=== PATIENT | female | born 1975 | race Caucasian/White ===

== ENCOUNTER → 2017-05-24 | Outpatient (CLI) | payer OTHER | LOC: FIMAGING 10:28 | PROVIDERS: ATTEND Physician Assistant | DX: K76.0 Fatty (change of) liver, not elsewhere classified (principal); K76.89 Other specified diseases of liver ==

== ENCOUNTER 2018-01-03 | Day surgery (SDC) | payer OTHER | END 2018-01-03 14:15 | disposition home or self-care (01) | PROC: 0DB98ZX Excision of Duodenum, Via Natural or Artificial Opening Endoscopic, Diagnostic (ICD-10-PCS; principal; 2018-01-03) | PROC: 0DB68ZX Excision of Stomach, Via Natural or Artificial Opening Endoscopic, Diagnostic (ICD-10-PCS; principal; 2018-01-03) | DX: K29.50 Unspecified chronic gastritis without bleeding (principal); K31.89 Other diseases of stomach and duodenum ==

== ENCOUNTER 2018-01-12 08:05 | Observation (INO) | payer OTHER ==
[2018-01-12] MEDS ORDERED: ceFAZolin 2 GM/DEXTROSE 100 ML IV ONE (08:11)
[2018-01-12] MEDS ORDERED: LR 1,000 ML IV ONE (08:22)
[2018-01-12] MEDS ORDERED: THROMBIN (BOVINE) 20,000 UNIT SPRAY TP ONE (10:16)
[2018-01-12] MEDS ORDERED: BUPIVACAINE 0.25% 30 ML SDV ONE (10:16)
[2018-01-12] MEDS ORDERED: BACITRACIN ZINC 14.2 GM OINTTUBE TP ONE (10:17)
[2018-01-12] MEDS ORDERED: GENTAMICIN SULFATE 80 MG/2 ML VIAL ONE (10:18)
[2018-01-12] MEDS ORDERED: BACITRACIN 50,000 UNITS/10 ML SYR IRR ONE (10:18)
[2018-01-12] MEDS ORDERED: ceFAZolin 1 GM/5 ML SYR ONE (10:18)
--- NOTE | 2018-01-12 10:31 | PDANEPAE ---
ANE Past Medical History - Cardiovascular History Hx Hypertension: No Hx Arrhythmias: No Hx Chest Pain: No Hx Coronary Artery / Peripheral Vascular Disease: No Hx CHF / Valvular Disease: No Hx Palpitations: No Cardiovascular History Comment: cp several yrs ago 2002, workup at that was negative per pt no issues since then - Pulmonary History Hx COPD: No Hx Asthma/Reactive Airway Disease: Yes Hx Recent Upper Respiratory Infection: No Hx Oxygen in Use at Home: No Hx Sleep Apnea: No Sleep Apnea Screening Result - Last Documented: Negative Pulmonary History Comment: allergy induced asthma,uses inhaler albuterol. Pt states she 'sometimes forgets to breath when awake' and will end up gasping. States "has never passed out but it happens all the time" - Neurologic History Hx Cerebrovascular Accident: No Hx Seizures: No Hx Dementia: No - Endocrine History Hx Diabetes: No - Renal History Hx Renal Disorders: No - Liver History Hx Hepatic Disorders: No - Neurological & Psychiatric Hx Hx Neurological and Psychiatric Disorders: Yes Neurological / Psychiatric History Comment: depression R/T new diagnosis - Cancer History Hx Cancer: Yes Cancer History Comment: erpr positive. ductal carcinoma of breast - Congenital Disorder History Hx Congenital Disorders: No - GI History Hx Gastrointestinal Disorders: Yes Gastrointestinal History Comment: reflux, ciliac disease. vomiting - Other Health History Other Health History: psoriasis forehead, scalp, behind ears, and under breasts - Chronic Pain History Chronic Pain: Yes (headaches) - Surgical History Prior Surgeries: endoscopy x2, last 01/03/18 for gastritis ANE Review of Systems Review of Systems: - Exercise capacity METS (RN): 4 METS ANE Patient History - Allergies Allergies/Adverse Reactions: gluten Allergy (Verified 01/10/18 11:47) pt has celiac disease metronidazole Allergy (Verified 01/09/18 08:47) "Head to toe rash" Poultry [chicken] Allergy (Verified 01/10/18 11:47) rash, difficulty breathing vancomycin Allergy (Verified 01/09/18 08:47) "[place] like burning from inside out" - Home Medications Home Medications: Acetaminophen/ASA/Caffeine [Excedrin Tablet (*)] 2 each PO DAILY PRN 01/09/18 [ Last Taken 01/06/18] Albuterol [Proventil Inhaler HFA (*)] 1 - 2 puffs IH Q4H PRN 01/09/18 [Last Taken 3 Months Ago ~10/12/17] Clindamycin Cream 1 joann TP WE 01/09/18 [Last Taken 2 Weeks Ago ~12/29/17] valACYclovir 01/10/18 [Last Taken 07/06/17] - NPO status NPO Since - Liquids (Date): 01/11/18 NPO Since - Liquids (Time): 22:00 NPO Since - Solids (Date): 01/11/18 NPO Since - Solids (Time): 22:00 - Smoking Hx Smoking Status: Former smoker - Family Anes Hx Family Hx Anesthesia Complications: grandmother did not ever wake up from anesthesia ANE Labs/Vital Signs - Vital Signs Blood Pressure: 110/86 Heart Rate: 75 Respiratory Rate: 16 O2 Sat (%): 96 Height: 152.4 cm Weight: 108.409 kg ANE Physical Exam - Airway Mallampati Score: Class 1 - ASA Status ASA Status: II ANE Anesthesia Plan Anesthesia Plan: GA w LMA
[2018-01-12] MEDS ORDERED: fentaNYL 100 MCG/2 ML INJ ONE ×3 (10:36→12:44)
[2018-01-12] MEDS ORDERED: MIDAZOLAM 2 MG/2 ML VIAL ONE (10:36)
[2018-01-12] MEDS ORDERED: PROPOFOL 200 MG/20 ML VIAL ONE (10:37)
--- NOTE | 2018-01-12 10:37 | PDHPUP ---
History & Physical Update H&P update statement: This history and physical update is based on an assessment of the patient which was completed after admission or registration (within 24 hours), but prior to the surgery/procedure. H&P update: H&P reviewed & patient examined, no change in patient's condition since H&P completed
[2018-01-12] MEDS ORDERED: ONDANSETRON 4 MG/2 ML VIAL ONE (10:38)
[2018-01-12] MEDS ORDERED: LIDOCAINE 2% JELLY 5 ML TUBE ONE (10:38)
[2018-01-12] MEDS ORDERED: METOCLOPRAMIDE 10 MG/2 ML VIAL ONE (10:38)
[2018-01-12] MEDS ORDERED: ceFAZolin 1 GM VIAL ONE (11:45)
--- NOTE | 2018-01-12 11:45 | POSTOPPROG ---
Post Op Note Date of Operation: 01/12/18 Surgeon: Luna Rodriguez Internetworking Technician: gloria Anesthesiologist: matthias Anesthesia: GET(General Endotracheal) Pre-op Diagnosis: L invasive ductal ca Post-op Diagnosis: same Indication: 42yo F with L invasive ductal ca Procedure: L mastectomy with L SLN bx Findings: L SLN neg Inf/Abcess present in the surg proc area at time of surgery?: No Specimen(s): L breast L SLN
[2018-01-12] MEDS ORDERED: ONDANSETRON 4 MG/2 ML VIAL IVP PRN (11:47)
[2018-01-12] MEDS ORDERED: oxyCODONE IR 5 MG TAB PO PRN (11:47)
[2018-01-12] MEDS ORDERED: HYDROmorphONE/DILAUDID 1 MG/ML INJ IVP PRN ×2 (11:47→12:45)
[2018-01-12] MEDS ORDERED: ONDANSETRON DISINTEGRATING 4 MG TAB PO PRN (11:47)
[2018-01-12] MEDS ORDERED: diphenhydrAMINE 25 MG CAP PO PRN (11:47)
[2018-01-12] MEDS ORDERED: ACETAMINOPHEN/ASA/CAFFEINE 1 EACH TAB PO PRN (11:49)
[2018-01-12] MEDS ORDERED: ALBUTEROL 60 PUFFS/8 GM MDI IH PRN (11:49)
--- NOTE | 2018-01-12 12:11 | GOP ---
DATE OF OPERATION: 01/12/2018 SURGEON: Luna Rodriguez MD KIESELGUHR REGENERATOR OPERATOR: Haylee Perez PA-C. ANESTHESIA: Amilcar Sullivan/general. PREOPERATIVE DIAGNOSIS: Left upper outer breast cancer. POSTOPERATIVE DIAGNOSIS: Left upper outer breast cancer. PROCEDURE PERFORMED: Left unilateral mastectomy and left sentinel lymph node. FINDINGS: The breast weighed 1414 g. The sentinel lymph node was negative ESTIMATED BLOOD LOSS: 25 cc. INDICATIONS: The patient is a 42-year-old woman, who was recently diagnosed with breast cancer. She desired unilateral mastectomy with tissue guest service team leader. DESCRIPTION OF PROCEDURE: Patient was brought into the operating room, placed supine on the table. General anesthesia was administered. Her bilateral chest was prepped and draped in the usual sterile fashion. I made an ellipse around her nipple-areolar complex, which had been premarked by Dr. Thorne. I made superior and inferior skin flaps, continued to the clavicle, sternum, inframammary fold, and midaxillary line. I removed the breast from the chest wall including the pectoralis fascia was marked short superior, long lateral. I used the gamma probe to identify the sentinel node. It measured 2600 ex vivo. The background was less than 100. Hemostasis was achieved. Dr. Thorne could then complete his portion of the case. /[id number]/MODL MTDD
[2018-01-12] MEDS: fentaNYL 100 MCG/2 ML INJ IVP PRN ×3 (12:42→13:06)
[2018-01-12] MEDS ORDERED: KETOROLAC 30 MG/1 ML SDV ONE (12:44)
[2018-01-12] MEDS ORDERED: DEXAMETHASONE 4 MG/ML VIAL IVP PRN (12:45)
[2018-01-12] MEDS ORDERED: ACETAMINOPHEN 500 MG TAB PO PRN (12:45)
[2018-01-12] MEDS ORDERED: PROMETHAZINE HCL 25 MG/ML INJ IVP PRN (12:45)
[2018-01-12] MEDS ORDERED: NALOXONE HCL 0.4 MG/ML INJ IVP PRN (12:45)
[2018-01-12] MEDS ORDERED: LR 500 ML IV PRN (12:45)
[2018-01-12] MEDS ORDERED: DIAZEPAM 5 MG/ML 1 ML SYR IVP PRN (12:45)
[2018-01-12] MEDS ORDERED: KETOROLAC 30 MG/1 ML SDV IVP ONE (12:46)
--- NOTE | 2018-01-12 12:47 | POSTANESTH ---
Post Anesthetic Evaluation Cardiovascular Status: Normal, Stable Respiratory Status: Normal, Stable Level of Consciousness/Mental Status: Can Participate in Eval Pain Control: Adequate, Prn Tx Ordered Nausea/Vomiting Control: Adequate, Prn Tx Ordered Complications Possibly Related to Anesthesia: None Noted
--- NOTE | 2018-01-12 13:02 | GOP ---
DATE OF OPERATION: 01/12/2018 SURGEON: Chante Thorne Jr., MD ASSISTANT FOOD SERVICE MANAGER: Angelo Don, by surgeon request (skilled surgical assist was necessary du e to the technical complexity of the case and desire to minimize patient anesthesia time). ANESTHESIA: General inhalational anesthetic. ANESTHESIOLOGIST: Dr. Amilcar Sullivan. PREOPERATIVE DIAGNOSIS: Left breast cancer. POSTOPERATIVE DIAGNOSIS: Left breast cancer. PROCEDURE PERFORMED: Immediate left breast reconstruction utilizing tissue senior product manager and human dermal allograft. FINDINGS: ESTIMATED BLOOD LOSS: During reconstruction was 25 cc. INDICATIONS: The patient is a delightful young woman referred by Dr. Lauren Rodriguez for breast reconstr uction following a planned left mastectomy. She elected to undergo initial placement of a tissue exp aakash with thoughts of eventually having a free flap transfer to the area. She was taken to the oper ating room for that purpose. DESCRIPTION OF PROCEDURE: After risks and benefits of the procedure were explained to the patient, f ormal operative consent was obtained. She was taken to the operating room. After adequate inhalatio nal general anesthesia was provided by Dr. Amilcar Sullivan, a left-sided mastectomy with sentinel lymph node mapping was performed by Dr. Rodriguez. This was uncomplicated. [place] lymph node was negative. Reconstruction proceeded by placing fresh sterile towels around the operative field, changing instr umentation, electrocautery and suction. Procedure began by irrigating the pocket. Meticulous hemost asis was assured during the mastectomy. The tissue senior product manager had been previously prepared by deflatin g completely, reinflating with air, and wrapping in complete wrap of AlloDerm acellular dermis graft. The graft had been previously triple rinsed in normal saline and soaked in triple antibiotic saline . The AlloDerm enclosed tissue senior product manager were then sutured down to the chest wall in the correct shaheen omic position using 2-0 PDS suture. The skin was then redraped. Significant lateral dog-ear was exc ised. Skin redundancy was sharply excised. Hemostasis again assured. The pocket was rinsed with tr iple antibiotic saline. A 15 round drain was placed. The incision was then closed in 3 layers using 3-0 Vicryl suture, 3-0 Monocryl suture, and further everted using surgical alberto. 30 cc of 0.25% plain Marcaine was instilled into the drain. Bacitracin, Xeroform, and 4 x 4's were applied with a c ompressive bra. She was extubated in the OR, taken to the recovery room, awake, in a stable conditio n. TISSUE PRODUCE TEAM LEAD: Allergan style [id number], 550 cc tissue senior product manager filled to 400 cc with air. DRAIN: One PAUL drain was placed. COMPLICATIONS: None. /[id number]/MODL
[2018-01-12] MEDS ORDERED: oxyCODONE IR 5 MG TAB ONE (13:19)
[2018-01-12] MEDS ORDERED: valACYclovir 500 MG TAB PO PRN (15:21)
[2018-01-12] MEDS: oxyCODONE IR 5 MG TAB PO PRN ×3 (15:28→23:45)
[2018-01-12] MEDS: ACETAMINOPHEN 325 MG TAB PO PRN ×2 (18:17→23:45)
[2018-01-12] MEDS: CYCLOBENZAPRINE 10 MG TAB PO PRN ×2 (18:17→21:38)
[2018-01-12] MEDS: ceFAZolin 0.5 GM in NS 50 ML IV SCH (21:38)
[2018-01-13] MEDS: oxyCODONE IR 5 MG TAB PO PRN ×6 (04:55→20:22)
[2018-01-13] MEDS: ceFAZolin 0.5 GM in NS 50 ML IV SCH (04:57)
[2018-01-13 05:00] LABS: PLATELET COUNT 203 10^3/uL (150-400)
[2018-01-13] MEDS: ACETAMINOPHEN 325 MG TAB PO PRN ×3 (09:11→21:14)
--- NOTE | 2018-01-13 11:03 | SOAPPROG ---
SOAP Progress Note Assessment/Plan: Assessment: POD # 1 s/p L mastectomy L SLN and reconstruction Bradycardia - sinus wil on EKG Still in pain Still requiring Oxygenation - has history of obstructive sleep apnea and apneic events in the daytime Will monitor O2 sat BP stable HR up S: In pain, walked twice yesterday O: Lying in bed at bedside Incision cdi Plan: 01/13/18 11:03 01/13/18 11:04 Objective: Vital Signs Temp Pulse Resp BP Pulse Ox 36.1 C 54 L 18 120/67 97 01/13/18 09:05 01/13/18 09:05 01/13/18 09:05 01/13/18 09:05 01/13/18 09:05 Laboratory Results 01/13/18 04:50 01/12/18 01/13/18 01/14/18 05:59 05:59 05:59 Intake Total 2460 100 Output Total 365 Balance 2095 100 ICD10 Worksheet Patient Problems: Problems Problem Status Onset Breast cancer Acute - ICD10 Problem Qualifiers (1) Breast cancer Qualifiers: Patient sex: female Laterality: left
[2018-01-13] MEDS ORDERED: CEPHALEXIN 500 MG CAP PO SCH (12:00)
[2018-01-13] MEDS: CEPHALEXIN 500 MG CAP PO SCH ×3 (12:43→23:33)
[2018-01-13] MEDS ORDERED: NS 1,000 ML IV ONE (15:30)
--- NOTE | 2018-01-13 16:05 | CPEKG ---
Test Reason : OPEN Blood Pressure : / mmHG Vent. Rate : 045 BPM Atrial Rate : 046 BPM P-R Int : 162 ms QRS Dur : 099 ms QT Int : 455 ms P-R-T Axes : 022 028 022 degrees QTc Int : 394 ms Sinus bradycardia Low voltage, precordial leads Confirmed by Jan Fabian ([id number]) on 01/13/2018 4:05:32 PM Referred By: Confirmed By:Jan Fabian
--- NOTE | 2018-01-13 17:49 | ASMTCMCOM ---
CM Note CM Note Notes: Pt admitted to hospital for a scheduled L breast mastectomy. She lives with her and is otherwise independent. Anticipate she will go home with no needs. CM available for any changes. DC Plan: Independent Date Signed: 01/13/2018 05:48 PM Electronically Signed By:Jennifer Walton RN
[2018-01-14] MEDS: oxyCODONE IR 5 MG TAB PO PRN ×6 (00:50→16:56)
[2018-01-14] MEDS: CEPHALEXIN 500 MG CAP PO SCH ×3 (05:16→17:06)
[2018-01-14] MEDS: ACETAMINOPHEN 325 MG TAB PO PRN ×2 (05:19→16:01)
[2018-01-14] MEDS ORDERED: MAGNESIUM HYDROXIDE 30 ML UDCUP PO PRN (09:48)
[2018-01-14] MEDS ORDERED: LACTULOSE 20 GM/30 ML UDCUP PO PRN (09:48)
[2018-01-14] MEDS ORDERED: POLYETHYLENE GLYCOL 3350 17 GM PKT PO PRN (09:48)
[2018-01-14] MEDS ORDERED: BISACODYL 10 MG SUPP PR PRN (09:48)
--- NOTE | 2018-01-14 10:33 | SOAPPROG ---
SOAP Progress Note Assessment/Plan: Assessment: POD # 2 s/p L mastectomy L SLN and reconstruction Bradycardia - sinus wil on EKG - improved overnight Hypotension resolved with bolus Choked on food this am but recovered Oxygenation improved Likely dc later this afternoon S: Still some chest discomfort. O: Sitting up in bed Incision cdi no evidence of flap necrosis PAUL with serosanguinous fluid Plan: 01/13/18 11:03 01/13/18 11:04 01/14/18 10:31 Objective: Vital Signs Temp Pulse Resp BP Pulse Ox 37.1 C 66 16 97/66 L 90 L 01/14/18 07:55 01/14/18 07:55 01/14/18 07:55 01/14/18 07:55 01/14/18 07:58 Laboratory Results 01/13/18 04:50 01/13/18 01/14/18 01/15/18 05:59 05:59 05:59 Intake Total 2460 1950 Output Total 365 550 Balance 209 1400 ICD10 Worksheet Patient Problems: Problems Problem Status Onset Breast cancer Acute - ICD10 Problem Qualifiers (1) Breast cancer Qualifiers: Patient sex: female Laterality: left
--- NOTE | 2018-01-14 13:15 | PDHOMEO2F ---
Home Oxygen Face to Face Home Orders: I certify that a physician or a nurse practitioner or physician's graduate research assistant has had a [id number] encounter with this patient on the date of this order due to the diagnosis listed, which relates to the primary reason the patient requires home oxygen. Alternative treatments have been tried, or considered, and deemed ineffective. It is anticipated that supplemental oxygen will result in improvement with treatment. Home oxygen qualifying diagnosis: restrictive lung disease SpO2 on room air (%): 86 Frequency of home oxygen needed: during sleep Home oxygen liters per minute: 2L Home oxygen delivery device: nasal cannula Concentrator: Yes E-tanks for mobility and back up: Yes If ordering portable O2, is the patient mobile in the home?: Yes I certify that, based on these findings, the home oxygen is medically necessary for this patient for the following length of time. Length of time home oxygen needed: 1 month (O2 sat 86% when sleeping)
[2018-01-14] MEDS ORDERED: SENNOSIDES/DOCUSATE SODIUM TAB PO SCH (14:15)
--- NOTE | 2018-01-14 14:37 | ASMTLACE ---
DEVONE Length of stay for Answers: 2 days current admission Comorbidities - select Answers: Any tumor (including all that apply lymphoma or leukemia) Opioid dependence / Chronic pain # of Emergency department Answers: 0 visits in the last 6 months Social determinants Answers: Mental health diagnosis (anxiety, depression, pers onality disorders, etc.) Score: 11 Date Signed: 01/14/2018 02:37 PM Electronically Signed By:Elizabeth Villar RN
--- NOTE | 2018-01-14 14:41 | ASMTCMCOM ---
CM Note CM Note Notes: Met with patient and her to review dc plan of care. Patient requiring oxygen. Pain is issue today. They are clear regarding follow up appointments and deny other needs at this time. CM available should other needs arise. Plan: Home with oxygen and family support. Date Signed: 01/14/2018 02:41 PM Electronically Signed By:Elizabeth Villar RN
[2018-01-14 17:09] VITALS: BP 115/75
[2018-01-17] MEDS ORDERED: CLINDAMYCIN TP SCH (11:49)
--- NOTE | 2018-01-23 18:19 | GDS ---
ADMITTING DIAGNOSIS: Left breast cancer. SECONDARY DIAGNOSES: 1. Asthma. 2. Celiac disease. 3. Psoriasis. REASON FOR ADMISSION: A 42-year-old woman diagnosed with a left breast cancer. She presents at this time for surgical intervention. HOSPITAL COURSE: She was taken to the operating room on 01/12/2018, by Dr. Luna Rodriguez for a left ma stectomy with left sentinel lymph node biopsy followed by plastic surgery reconstruction by Dr. Dada murray. She had PAUL drains placed at the time of surgery. At the time of dictation, her final pathology revealed multifocal invasive breast cancer with associated DCIS with areas of mucinous differentiatio n. Her sentinel lymph node biopsy was negative for metastatic disease. She developed bradycardia du ring her hospital stay, which improved overnight. She additionally had hypotension which resolved wi th a normal saline fluid bolus. She required supplemental oxygen through her hospital stay and this was not discontinued prior to discharge. By postoperative day #2 her pain was well controlled, camron ating regular diet, ambulating independently. CONDITION: She is being discharged home in stable condition. DISCHARGE MEDICATIONS: No new prescriptions sent home. Instructed to resume home medicines. Please see EMR for further detail. DISCHARGE INSTRUCTIONS AND FOLLOWUP: She will record and empty PAUL drain daily, showering and lifting per Dr. Thorne's preop instructions, appointment with Dr. Thorne on Monday, 01/17. Follow up w pablo Rodriguez in 2 weeks. She was sent home with supplemental oxygen. Call with worsening sym ptoms, questions or concerns. /[id number]/MODL
== END 2018-01-14 17:34 | disposition home or self-care (01) ==
LOC: F3N 08:05 → F1N 13:43
PROVIDERS: ADMIT Surgery; ATTEND Surgery
PROC: 07B60ZX Excision of Left Axillary Lymphatic, Open Approach, Diagnostic (ICD-10-PCS; 2018-01-12)
PROC: 0HTU0ZZ Resection of Left Breast, Open Approach (ICD-10-PCS; principal; 2018-01-12 10:00)
PROC: 0HHU0NZ Insertion of Tissue Expander into Left Breast, Open Approach (ICD-10-PCS; 2018-01-12 10:00)
DX: C50.412 Malignant neoplasm of upper-outer quadrant of left female breast (principal); J45.909 Unspecified asthma, uncomplicated; K90.0 Celiac disease; L40.9 Psoriasis, unspecified
CPT/HCPCS: 19303; 19357; 38525; 78195; 93005; A9520; G0378; J0690; J1170; J1580; J1885; J2250; J2270; J2405; J2704; J2765; J3010; Q4116

== ENCOUNTER 2018-01-23 21:22 | Observation (INO) | payer OTHER ==
[2018-01-23] MEDS ORDERED: ONDANSETRON 4 MG/2 ML VIAL IVP PRN (23:18)
[2018-01-23] MEDS ORDERED: ONDANSETRON DISINTEGRATING 4 MG TAB PO PRN (23:18)
[2018-01-23] MEDS ORDERED: ACETAMINOPHEN 325 MG TAB PO PRN (23:18)
[2018-01-23] MEDS: oxyCODONE IR 5 MG TAB PO PRN (23:44)
--- NOTE | 2018-01-24 00:13 | PDGENHP ---
History and Physical - Chief Complaint Pain - History of Present Illness 42 yo F w/ hx of asthma and breast CA presents from outpatient surgery center with uncontrolled pain. Patient underwent bilateral breast operations today. She tells me she had reconstruction on the L side and reduction on the R. The initial plan was for patient to be discharged home but she had uncontrolled pain despite treatment with oral medication. The only medication that worked was morphine so she is being admitted for pain control. She denies SOB at this time. Her VS are WNL on admission. Case discussed with Dr. Alexander, records reviewed in EMR. History Information - Allergies/Home Medication List Allergies/Adverse Reactions: gluten Allergy (Verified 01/10/18 11:47) pt has celiac disease metronidazole Allergy (Verified 01/09/18 08:47) "Head to toe rash" Poultry [chicken] Allergy (Verified 01/10/18 11:47) rash, difficulty breathing vancomycin Allergy (Verified 01/09/18 08:47) "[place] like burning from inside out" Home Medications: Acetaminophen/ASA/Caffeine [Excedrin Tablet (*)] 2 each PO DAILY PRN 01/09/18 [ Last Taken 01/06/18] Clindamycin 2% [Cleocin 2% Vaginal Cream (RX)] 0 gm VAG WE 01/09/18 [Last Taken 2 Weeks Ago ~12/29/17] valACYclovir [Valtrex (*)] 500 mg PO DAILY PRN 01/10/18 [Last Taken 07/06/17] Albuterol Hfa Anes Only [Proair Hfa Icu (*)] 2 puffs IH Q4-6PRN PRN 01/12/18 [ Last Taken Unknown] Hydrocodone/Acetaminophen [Hydrocodone-Acetamin 5-325 mg] 1 - 2 tab PO Q4-6PRN PRN 01/24/18 [Last Taken Unknown] I have personally reviewed and updated: family history, medical history - Past Medical History asthma, cancer - Surgical History Additional surgical history: L mastectomy by Dr. Rodriguez 01/12/18 - Family History Positive for: diabetes type II Additional family history: Multiple family members with primary pulmonary hypertension - Social History Smoking Status: Former smoker Review of Systems Review of Systems: ROS: 10pt was reviewed & negative except for what was stated in HPI & below Physical Exam Physical Exam: Temp Pulse Resp BP Pulse Ox 36.7 C 90 8 L 124/70 H 91 L 01/23/18 23:25 01/23/18 23:25 01/23/18 23:25 01/23/18 23:25 01/23/18 23:25 Constitutional: appears nourished, uncomfortable Eyes: PERRL, EOMI Ears, Nose, Mouth, Throat: moist mucous membranes, no oral mucosal ulcers Cardiovascular: regular rate and rhythym, no murmur, rub, or gallop Respiratory: no respiratory distress, clear to auscultation Gastrointestinal: normoactive bowel sounds, soft, non-tender abdomen Skin: warm, other (Surgical bandages in place) Musculoskeletal: full muscle strength, no joint effusions Neurologic: AAOx3, CN II-XII Intact Psychiatric: interacting appropriately, not anxious Assessment & Plan Assessment: 42 yo F w/ asthma and breast CA presents with uncontrolled pain after outpatient breast surgery. Plan: 1. Bilateral breast surgery - L reconstruction and R reduction preformed on 01/23 ; plan was for outpatient management but patient experienced uncontrolled pain. She is being admitted for pain control. - Oxycodone and morphine PRN - Continue Keflex for infectious prophylaxis 2. Breast CA - S/p L mastectomy and LN biopsy by Dr. Rodriguez on 01/12/18. 3. Asthma - Mild, intermittent; no signs of acute exacerbation. 4. Celiac disease - Reports well controlled Diet - Regular Code - Full Ppx - SCDs Dispo - Admit under observation status
[2018-01-24] MEDS: oxyCODONE IR 5 MG TAB PO PRN ×2 (03:29→10:14)
[2018-01-24 05:51] LABS: PLATELET COUNT 309 10^3/uL (150-400)
[2018-01-24 08:15] VITALS: BP 99/53
[2018-01-24] MEDS ORDERED: PNEUMOCOCCAL 0.5ML VACCINE VIAL IM ONE (08:30)
[2018-01-24] MEDS ORDERED: CEPHALEXIN 500 MG CAP PO SCH (09:00)
--- NOTE | 2018-01-24 12:40 | PDDCSUM ---
Discharge Summary Discharge Summary: Date of Admission: 01/23/2018 Date of Discharge: 01/24/2018 Consults: N/A Followup: with Surgery, PCP Hospital Course Problem List: 42 yo F w/ asthma and breast CA presented with uncontrolled pain after outpatient breast surgery. 1. Bilateral breast surgery - L reconstruction and R reduction preformed on 01/23 ; plan was for outpatient management but patient experienced uncontrolled pain. She was admitted for pain control. - Patient was given Oxycodone and morphine PRN as inpatient, discharged with a short supply of pain medication for breakthrough pain - Continue Keflex for infectious prophylaxis 2. Breast CA - S/p L mastectomy and LN biopsy by Dr. Rodriguez on 01/12/18. 3. Asthma - Mild, intermittent; no signs of acute exacerbation. 4. Celiac disease - Reports well controlled Time spent on discharge was >35 minutes with >50% of time spent on patient education and counseling
== END 2018-01-24 11:40 | disposition home or self-care (01) ==
LOC: INTOOBSV 23:12 → F3E 23:12
PROVIDERS: ADMIT Student in an Organized Health Care Education/Training Program; ATTEND Internal Medicine
DX: G89.18 Other acute postprocedural pain (principal); J45.909 Unspecified asthma, uncomplicated; K90.0 Celiac disease; Z90.12 Acquired absence of left breast and nipple; Z23 Encounter for immunization; Z85.3 Personal history of malignant neoplasm of breast
CPT/HCPCS: 90471; G0378; G0009

== ENCOUNTER 2018-10-24 17:20 | Emergency (ER) | payer OTHER | END 2018-10-24 20:39 | disposition home or self-care (01) ==